=== PATIENT | female | born 1945 | race American Indian/Alaskan Native ===

== ENCOUNTER 2021-09-04 13:43 | Emergency (ER) | payer MEDICARE ==
--- NOTE | 2021-09-04 13:50 | Emergency Department Report ---
ED CPR HPI - General Stated Complaint: CARDIAC ARREST Time Seen by Provider: 09/04/21 13:46 Source: family, EMS, old records reviewed Mode of arrival: Stretcher Limitations: Other (cardiac arrest) - History of Present Illness Initial Comments: Chief complaint: Found down, cardiac arrest HPI: Is a 76-year-old female history of hypertension, diabetes mellitus, ovarian cancer who was found unresponsive by family members at home. Upon arrival initial rhythm asystole, PEA arrest. Patient was treated with endotracheal tube intubation, 3 doses of epinephrine, 1 dose of sodium bicarbonate, 300 mg amiodarone, and 1 shock. I spoke with patient's daughter. Patient recently started treatment for ovarian cancer. She recently had paracentesis. Daughter did not know staging. Patient was evaluated by EMS on yesterday. She was vomiting brown stuff. She received 500 cc of IV fluid. Patient became unresponsive this morning suddenly while speaking with her daughter. Family members performed chest compressions. MD Complaint: found unresponsive, stopped breathing Initial Findings in the Field: unresponsive, PEA (And asystole) ROSC in the Field: No Treatments Prior to Arrival: intubation, defribrillated shocks # (1 shock), epinephrine mgs # (3 doses of epinephrine), sodium bicarbonate (1 dose of sodium bicarb), amiodarone (300 mg of amiodarone) ED Review of Systems ROS: Stated complaint: CARDIAC ARREST Other details as noted in HPI Comment: Unobtainable due to pts medical conditions (Cardiac arrest lifeless) ED Past Medical Hx - Past Medical History Previous Medical History?: Yes Hx Hypertension: Yes Hx Diabetes: Yes Additional medical history: Ovarian cancer ED Physical Exam - General General appearance: obtunded, cachectic (Temporal wasting), other (Lifeless no response to pain no spontaneous movement) - Head Head exam: Present: atraumatic, normocephalic - Eye Eye exam: Present: other (Dry corneas no eyelid reflex fixed dilated pupils). Absent: scleral icterus, conjunctival injection - ENT ENT exam: Present: other (Pale mucosa ETT in place) - Neck Neck exam: Present: normal inspection, other (Positive JVD) - Respiratory Respiratory exam: Present: other (Equal coarse breath sounds with ventilation through ETT and Ambu bag) - Cardiovascular Cardiovascular Exam: Present: other (No auscultated heart sounds, no palpable pulse) - GI/Abdominal GI/Abdominal exam: Present: soft, diminished bowel sounds. Absent: distended - Extremities Exam Extremities exam: Present: normal inspection, other (No significant pedal edema, no deformity of the upper and lower extremities) - Neurological Exam Neurological exam: Present: other (Lifeless no spontaneous movement) - Psychiatric Psychiatric exam: Present: other (Lifeless no response to noxious stimuli) - Skin Skin exam: Present: pallor, other (Cool to touch) ED Medical Decision Making - Medical Decision Making This is a 76-year-old female with history of hypertension, diabetes mellitus, ovarian cancer who presents with obvious cachexia. She received 35 minutes of ACLS resuscitation via EMS including endotracheal tube intubation, epinephrine, amiodarone, chest compressions and sodium bicarbonate. Upon arrival patient's rhythm and asystole. Further resuscitation attempts deemed futile. Time of 1340 Critical care attestation.: If time is entered above; I have spent that time in minutes in the direct care of this critically ill patient, excluding procedure time. ED Disposition Clinical Impression: due to cardiac arrest Disposition: 20 Is pt being admited?: No Does the pt Need Aspirin: No Time of Disposition: 13:40
== END 2021-09-04 19:30 ==
LOC: ED 13:43
DX: I46.9 Cardiac arrest, cause unspecified (principal); E11.8 Type 2 diabetes mellitus with unspecified complications; Z85.43 Personal history of malignant neoplasm of ovary; I10 Essential (primary) hypertension
CPT/HCPCS: 92950; 99285